=== PATIENT | female | born 1965 | race American Indian/Alaskan Native ===

== ENCOUNTER 2018-10-25 05:53 | Day surgery (SDC) | payer OTHER ==
[2018-10-25] MEDS ORDERED: NACL BACTERIOSTATIC INFILTRATI ONE (06:29)
[2018-10-25] MEDS ORDERED: SILVER NITRATE TP ONE ×2 (06:47→08:55)
[2018-10-25] MEDS ORDERED: PEPCID PO NR (07:03)
[2018-10-25] MEDS ORDERED: NEURONTIN PO NR (07:03)
[2018-10-25] MEDS ORDERED: LACTATED RINGERS 1,000 ML IV SCH (07:03)
[2018-10-25] MEDS ORDERED: VERSED IV NR (07:22)
[2018-10-25] MEDS ORDERED: DIPRIVAN 10 MG/ML IV ONE (07:27)
[2018-10-25] MEDS ORDERED: SUBLIMAZE ONE (07:27)
[2018-10-25] MEDS ORDERED: ZOFRAN ONE (07:31)
[2018-10-25] MEDS ORDERED: Vasostrict ONE (07:41)
[2018-10-25] MEDS ORDERED: ADRENALINE P/F ONE (07:41)
[2018-10-25] MEDS ORDERED: NACL 0.9% IR ONE (08:18)
[2018-10-25] MEDS ORDERED: SUBLIMAZE IV PRN (08:42)
[2018-10-25] MEDS ORDERED: ZOFRAN IV PRN (08:42)
[2018-10-25] MEDS ORDERED: DILAUDID IV PRN (08:42)
--- NOTE | 2018-10-25 08:42 | Operative Report ---
Operative Report Operative Report: DATE: 10/25/18 PREOPERATIVE DIAGNOSIS: cervical polyp POSTOPERATIVE DIAGNOSIS: cervical polyp PROCEDURE: Polypectomy and hysteroscopy . SURGEON: Dr. Melva Kntot MD ESTIMATED BLOOD LOSS: Minimal. COMPLICATIONS: None. ANESTHESIA: General SPECIMEN: cervical polyp FINDINGS: Large poyp 1x5cm uterine cavity proliferative endometium samll polyp PROCEDURE IN DETAIL: This is a 53-year-old with large cervical polyp . Risks, benefits and alternatives discussed with the patient at length. Informed consent was obtained. The patient was taken to the operating room. General anesthesia was obtained without difficulty. She was then prepped and draped in the lithotomy position in [facility]. Examination under anesthesia revealed a small retroverted uterus. No adnexal masses were palpable. A weighted speculum was placed inside the vagina. The anterior lip of the cervix grasped with single-tooth tenaculum. The polyp grasped with allis and bovie used to remove at base of cervix located and intertwined to posterior cervix . The cervix was gently dilated to ensure reduction with diagnostic hysteroscope. The hysteroscope was introduced into the uterine fundus. One ostia were easily visualized. The cavity appeared smooth. There was some thickening of endometrium with some scant polypoid tissue on the posterior wall. The hysteroscope was removed. Tissue was obtained. There was polypoid tissue noted in the specimen. All instruments removed from the vagina. Hemostasis was achieved. The patient was awakened and taken to the recovery room in stable condition.
--- NOTE | 2018-10-25 08:44 | Anesthesia Day of Surgery ---
Anesthesia Day of Surgery - Day of Surgery Patient Examined: Yes Patient H&P Reviewed: Yes Patient is NPO: Yes Beta Blockers: No
--- NOTE | 2018-10-25 08:45 | Anesthesia Consultation ---
Anesthesia Consult and Med Hx Date of service: 10/25/18 - Airway Anesthetic Teeth Evaluation: Good ROM Head & Neck: Adequate Mental/Hyoid Distance: Adequate Mallampati Class: Class III Intubation Access Assessment: Probably Good - Pulmonary Exam CTA: Yes - Pre-Operative Health Status ASA Pre-Surgery Classification: ASA3 Proposed Anesthetic Plan: General - Pulmonary Hx Smoking: Yes (ONE PACK PER WEEK) Hx Sleep Apnea: No (MEE PRE SCREEN HIGH RISK.) - Cardiovascular System Hx Hypertension: Yes (X 16 YRS) - Other Systems Hx Cancer: No - Additional Comments Anesthesia Medical History Comments: ASA III, HTN and DMII, no previous problems w/ anesthesia
[2018-10-25] MEDS ORDERED: PERCOCET 5/325 PO PRN (09:25)
[2018-10-25 10:02] VITALS: BP 132/92
--- NOTE | 2018-10-25 14:39 | Post Anesthesia Evaluation ---
- Post Anesthesia Evaluation Patient Participated: Yes Airway Patent: Yes Stable Respiratory Function: Yes Nausea/Vomiting: No Temp > 96.8F: Yes Pain Manageable: Yes Adequeate Hydration: Yes Anesthesia Complications: No
== END 2018-10-25 10:15 | disposition home or self-care (01) ==
LOC: OR 05:53
PROVIDERS: ATTEND Obstetrics & Gynecology
DX: N84.1 Polyp of cervix uteri (principal); E78.00 Pure hypercholesterolemia, unspecified; I10 Essential (primary) hypertension; M19.90 Unspecified osteoarthritis, unspecified site; F17.210 Nicotine dependence, cigarettes, uncomplicated; Z79.84 Long term (current) use of oral hypoglycemic drugs; Z79.899 Other long term (current) drug therapy
CPT/HCPCS: 58558; 81025; 82962; 88305; A4217; J0171; J2250; J2405; J2704; J3010; J7120